=== PATIENT | female | born 1995 ===

== ENCOUNTER 2016-08-16 14:39 | Emergency (ER) | payer MEDICAID ==
[~2016-08-16 14:39] MED LIST: FLINTSTONES1 EAC1 PO; MOTRIN-DPS800 MG PO; NEWMANS NIPPLE CREAM TP; TYLENOL #3 DPS1 TAB PO
--- NOTE | 2016-09-15 21:14 | ER ---
ADMIT: 08/16/2016 RM/LOC: ER [facility] MR#: [id number] [id number] ELOISEGEORGESIS Alcon [address] [place] [address] Emergency Room Report SEX: F AGE: 20 : 1995 DATE: 08/16/2016 ADDENDUM: Regular physician is Dr. Ferraro. SUBJECTIVE: This patient comes into the ER because she has had abdominal pain for 2 days. It hurts when she urinates, and she feels like she has to urinate more often. She has had two periods this month, but she is having unprotected sex and may be . On physical exam, her abdomen is soft, slightly tender above the pubic symphysis. No rebound tenderness or guarding. No tenderness to percussion on either flank area. Urine had positive leukocyte esterase, and 8 wbc's. I wrote a prescription for Bactrim. We will have her push fluids. Follow with her primary as needed. Please see my T-sheet. ENMANUEL Griffin / Harsh Young MD / lucio JOB #: [id number] CC: Harsh Young MD, Attending Physician UNKNOWN, Family Physician
== END 2016-08-16 15:30 | disposition home or self-care (01) ==
LOC: ER 14:39
DX: N39.0 Urinary tract infection, site not specified (principal); F17.210 Nicotine dependence, cigarettes, uncomplicated; Z88.8 Allergy status to other drugs, medicaments and biological substances